=== PATIENT | male | born 1985 | race Two or more races ===

== ENCOUNTER 2018-08-03 17:43 | Emergency (ER) | payer MEDICAID, SELFPAY ==
[~2018-08-03] VITALS: Ht 162.6 cm; Wt 80.7 kg
[~2018-08-03 17:43] MED LIST: NKM; NORCO 5-325 TA1 EACH PO
[2018-08-03] MEDS ORDERED: NKM (17:52)
--- NOTE | 2018-08-03 17:55 | NUR ---
ED Nurse Note: Patient walked into ED c/o lower quadrant abdominal pain 10/10, constricting pain. patient reports it started 3.5 hours prior to arrival patient is alert awake x4 ambulatory, breathing even and unlabored
[2018-08-03] MEDS ORDERED: Isovue-300 100ml vial INJ PRN (18:00)
[2018-08-03] MEDS ORDERED: Morphine Sulfate 4mg/ml Inj (IV USE ONLY) IVP ONE (18:00)
--- NOTE | 2018-08-03 18:04 | Emergency Room Report ---
History of Present Illness General Chief Complaint: Abdominal Pain Source: Patient Present Illness HPI Patient presents in onset of epigastric pain that radiates to the umbilicus. It started about 2:00 this afternoon. This happened after he ate a sandwich. He denies any radiation. No nausea, vomiting, dysuria, hematuria. Severe pain. Improved by curling over. Allergies: Coded Allergies: No Known Allergies (Unverified , 05/17/13) Patient History Past Medical History: other - asthma Past Surgical History: none Pertinent Family History: none Nursing Documentation-H Hx Asthma: Yes Review of Systems All Other Systems: negative except mentioned in HPI Physical Exam Vital Signs Date Time Temp Pulse Resp B/P (MAP) Pulse Ox O2 Delivery O2 Flow Rate FiO2 08/03/18 17:49 98.4 88 20 138/84 97 Room Air General Appearance: moderate distress ENT: normal ENT inspection, no angioedema, normal voice Neck: normal inspection Respiratory: normal inspection, chest non-tender, lungs clear, normal breath sounds Gastrointestinal: normal inspection, no guarding, no hernia, no pulsatile mass , tenderness Genitourinary: no CVA tenderness Neurologic: alert, oriented x3, policy and planning manager III-XII nml as tested, motor strength/tone normal Psychiatric: normal inspection Medical Decision Making ER Course Patient presented with significant complexity of risk requiring multiple bedside evaluations. I was particularly concerned about acute abdominal etiology of appendicitis, small bowel obstruction, diverticulitis, perforation, pancreatitis. The patient is alert. CT was reviewed. The patient was given antibiotic for diverticulitis. Patient on a by mouth challenge. The patient is afebrile. His pain is much controlled after IV morphine. Be discharged home with very close follow-up by his primary care physician Te progression return if any change in symptoms or any new symptoms or worsening symptoms. Laboratory Tests Test 08/03/18 18:05 White Blood Count 19.8 K/UL (4.8-10.8) H Red Blood Count 5.49 M/UL (4.70-6.10) Hemoglobin 14.3 G/DL (14.2-18.0) Hematocrit 44.1 % (42.0-52.0) Mean Corpuscular Volume 80 FL (80-99) Mean Corpuscular Hemoglobin 26.1 PG (27.0-31.0) L Mean Corpuscular Hemoglobin Concent 32.5 G/DL (32.0-36.0) Red Cell Distribution Width 13.5 % (11.6-14.8) Platelet Count 275 K/UL (150-450) Mean Platelet Volume 6.7 FL (6.5-10.1) Neutrophils (%) (Auto) % (45.0-75.0) Lymphocytes (%) (Auto) % (20.0-45.0) Monocytes (%) (Auto) % (1.0-10.0) Eosinophils (%) (Auto) % (0.0-3.0) Basophils (%) (Auto) % (0.0-2.0) Differential Total Cells Counted 100 Neutrophils % (Manual) 91 % (45-75) H Lymphocytes % (Manual) 5 % (20-45) L Monocytes % (Manual) 3 % (1-10) Eosinophils % (Manual) 1 % (0-3) Basophils % (Manual) 0 % (0-2) Band Neutrophils 0 % (0-8) Platelet Estimate Adequate Platelet Morphology Normal Red Blood Cell Morphology Normal Urine Color Pale yellow Urine Appearance Clear Urine pH 6.5 (4.5-8.0) Urine Specific [place] 1.015 (1.005-1.035) Urine Protein Negative (NEGATIVE) Urine Glucose (UA) Negative (NEGATIVE) Urine Ketones Negative (NEGATIVE) Urine Blood 1+ (NEGATIVE) H Urine Nitrite Negative (NEGATIVE) Urine Bilirubin Negative (NEGATIVE) Urine Urobilinogen Normal MG/DL (0.0-1.0) Urine Leukocyte Esterase 1+ (NEGATIVE) H Urine RBC 0-2 /HPF (0 - 0) H Urine WBC 2-4 /HPF (0 - 0) Urine Squamous Epithelial Cells None /LPF (NONE/OCC) Urine Bacteria Few /HPF (NONE) Sodium Level 141 MMOL/L (136-145) Potassium Level 4.0 MMOL/L (3.5-5.1) Chloride Level 103 MMOL/L (98-107) Carbon Dioxide Level 30 MMOL/L (21-32) Anion Gap 8 mmol/L (5-15) Blood Urea Nitrogen 17 mg/dL (7-18) Creatinine 1.2 MG/DL (0.55-1.30) Estimate Glomerular Filtration Rate > 60 mL/min (>60) Glucose Level 100 MG/DL (74-106) Calcium Level 9.2 MG/DL (8.5-10.1) Total Bilirubin 0.4 MG/DL (0.2-1.0) Aspartate Amino Transferase (AST) 14 U/L (15-37) L Alanine Aminotransferase (ALT) 28 U/L (12-78) Alkaline Phosphatase 83 U/L (46-116) Total Protein 7.8 G/DL (6.4-8.2) Albumin 4.0 G/DL (3.4-5.0) Globulin 3.8 g/dL Albumin/Globulin Ratio 1.1 (1.0-2.7) Lipase 281 U/L (73-393) Last Vital Signs Date Time Temp Pulse Resp B/P (MAP) Pulse Ox O2 Delivery O2 Flow Rate FiO2 08/03/18 17:49 98.4 88 20 138/84 97 Room Air Disposition: HOME, SELF-CARE Condition: Stable Scripts Ondansetron (Zofran) 4 Mg Tablet 4 MG ORAL Q6H PRN for Nausea & Vomiting, #10 TAB Prov: JOSE DOUGLAS 08/03/18 Ibuprofen* (MOTRIN*) 600 Mg Tablet 600 MG ORAL Q8H PRN for For Pain, #30 TAB 0 Refills Prov: JOSE DOUGLAS. 08/03/18 Hydrocodone Bit/Acetaminophen 5-325* (NORCO 5-325*) 1 Each Tablet 1 TAB ORAL Q6H PRN for For Pain, #20 TAB 0 Refills Prov: JOSE DOUGLAS. 08/03/18 Metronidazole* (FLAGYL*) 500 Mg Tablet 500 MG ORAL THREE TIMES A DAY for 10 Days, #21 TAB Prov: JOSE DOUGLAS 08/03/18 Levofloxacin* (LEVAQUIN*) 500 Mg Tablet 500 MG ORAL DAILY for 10 Days, #10 TAB 0 Refills Prov: JOSE DOUGLAS. 08/03/18 Patient Instructions: Diverticulitis, [id number] JOSE DOUGLAS Aug 03, 2018 18:04
[2018-08-03 18:18] LABS: HEMATOCRIT 44.1 % (42.0-52.0); HEMOGLOBIN 14.3 G/DL (14.2-18.0); MEAN CORPUSCULAR VOLUME 80 FL (80-99); PLATELET COUNT 275 K/UL (150-450); RED BLOOD COUNT 5.49 M/UL (4.70-6.10); RED CELL DISTRIBUTION WIDTH 13.5 % (11.6-14.8); WHITE BLOOD COUNT 19.8 K/UL (4.8-10.8)
[2018-08-03 18:20] VITALS: BP 135/82
[2018-08-03 18:25] LABS: APPEARANCE,URINE CLEAR; BILIRUBIN, URINE NEGATIVE (NEGATIVE); COLOR,URINE PALE YELLOW; GLUCOSE, URINE (UA) NEGATIVE (NEGATIVE); KETONES,URINE NEGATIVE (NEGATIVE); LEUKOCYTE ESTERASE ,URINE 1+ (NEGATIVE); NITRITE,URINE NEGATIVE (NEGATIVE); PH,URINE 6.5 (4.5-8.0); PROTEIN,URINE NEGATIVE (NEGATIVE); UROBILINOGEN,URINE NORMAL MG/DL (0.0-1.0)
--- NOTE | 2018-08-03 18:29 | NUR ---
ED Nurse Note: at bedside
[2018-08-03 18:30] LABS: ANION GAP 8 mmol/L (5-15); BLOOD UREA NITROGEN 17 mg/dL (7-18); CALCIUM 9.2 MG/DL (8.5-10.1); CARBON DIOXIDE 30 MMOL/L (21-32); CHLORIDE 103 MMOL/L (98-107); CREATININE 1.2 MG/DL (0.55-1.30); SODIUM 141 MMOL/L (136-145)
[2018-08-03 18:35] LABS: ALANINE AMINOTRANSFERASE 28 U/L (12-78); ALBUMIN/GLOBULIN RATIO 1.1 (1.0-2.7); ALKALINE PHOSPHATASE 83 U/L (46-116); ASPARTATE AMINO TRANSFERASE 14 U/L (15-37); BILIRUBIN,TOTAL 0.4 MG/DL (0.2-1.0)
--- NOTE | 2018-08-03 18:42 | NUR ---
ED Nurse Note: patient went to CT
[2018-08-03] MEDS ORDERED: HYDROmorphone 1mg/ml Carpuject IVP ONE (20:00)
[2018-08-03] MEDS ORDERED: Levofloxacin 500mg tab ORAL ONE (21:00)
--- NOTE | 2018-08-03 21:00 | NUR ---
ED Nurse Note: PO charo well, no N/V or pain. Inform ERMD.
[2018-08-03 21:40] VITALS: BP 125/77
[2018-08-03] MEDS ORDERED: IBUPROFEN600 MG ORAL (21:43)
[2018-08-03] MEDS ORDERED: LEVAQUIN500 MG ORAL (21:43)
[2018-08-03] MEDS ORDERED: ZOFRAN4 M1 ORAL (21:43)
[2018-08-03] MEDS ORDERED: METRONIDAZOLE500 MG ORAL (21:43)
[2018-08-03] MEDS ORDERED: NORCO 5-325 TA1 EACH ORAL (21:43)
--- NOTE | 2018-08-03 22:00 | NUR ---
ER DISCHARGE NOTE: Patient is cleared to be discharged per ERMD, pt is aox4, on room air, with stable vital signs. pt was given dc and prescription instructions, pt was able to verbalize understanding, pt id band and iv site removed without complications. pt is able to ambulate with steady gait with girlfriend. pt took all belongings.
[2018-08-03 22:07] VITALS: BP 125/77
--- NOTE | 2018-08-04 10:29 | Diagnostic Imaging Report ---
Clinical Indication: Abdominal pain, epigastric pain radiating to the umbilicus Technique: No oral contrast utilized, per emergency room physician request IV administration nonionic contrast. Venous phase spiral acquisition obtained through the abdomen and pelvis. Multiplanar reconstructions were generated. Total dose length product 878.84 mGycm. CTDIvol(s) 17.05 mGy. Dose reduction achieved using automated exposure control Comparison: none Findings: There is a diverticulum of the mid sigmoid colon. There is inflammation of the surrounding mesenteric fat as well as thickening of the sigmoid wall in the region. No extraluminal gas or fluid. The appendix is normal. There is small bowel feces within the distal ileum indicating stasis of contents. No small bowel distention. No free or loculated intraperitoneal gas or fluid is evident. Distal esophagus, stomach, duodenum are unremarkable. The liver, gallbladder, bile ducts, pancreas, spleen, adrenals are unremarkable. There is a cyst in the left kidney. There are bilateral subcentimeter low-attenuation renal lesions which are too small to characterize. No retroperitoneal or mesenteric mass or adenopathy. No pelvic mass or adenopathy. The included lung bases are clear. The bones are unremarkable. Impression: Evidence of uncomplicated acute sigmoid diverticulitis. No other significant abnormality demonstrated This agrees with the preliminary interpretation provided overnight by Dr. Melvin The CT scanner at [facility] is accredited by the [employer] and the scans are performed using protocols designed to limit radiation exposure to as low as reasonably achievable to attain images of sufficient resolution adequate for diagnostic evaluation.
== END 2018-08-03 22:11 | disposition home or self-care (01) ==
LOC: EMR 18:14
DX: R10.13 Epigastric pain (principal)
CPT/HCPCS: 36415; 74177; 80053; 81003; 83690; 85007; 85025; 96361; 96365; 96375; 99284; J1170; J2270; J2405; Q9967

== ENCOUNTER 2018-08-30 17:03 | Emergency (ER) | payer MEDICAID ==
[~2018-08-30] VITALS: Ht 160 cm; Wt 78.9 kg
[~2018-08-30 17:03] MED LIST changes: +IBUPROFEN600 MG ORAL; +LEVAQUIN500 MG ORAL; +METRONIDAZOLE500 MG ORAL; +NORCO 5-325 TA1 EACH ORAL; +ZOFRAN4 M1 ORAL
--- NOTE | 2018-08-30 17:30 | NUR ---
ED Nurse Note: Pt ambulated to ED from home, c/o 10/10 abdominal pain x1 day, pt states he has diverticulitis. Pt is A&Ox4, VSS. Denies chest pain or sob, also c/o nausea
[2018-08-30] MEDS ORDERED: Ketorolac 30mg Inj IV ONE (17:45)
[2018-08-30] MEDS ORDERED: Morphine Sulfate 4mg/ml Inj (IV USE ONLY) IVP ONE ×2 (17:45→21:30)
[2018-08-30] MEDS ORDERED: Isovue-300 100ml vial INJ PRN (17:45)
[2018-08-30 18:26] LABS: ANION GAP 10 mmol/L (5-15); BLOOD UREA NITROGEN 9 mg/dL (7-18); CARBON DIOXIDE 27 MMOL/L (21-32); CHLORIDE 102 MMOL/L (98-107); CREATININE 0.9 MG/DL (0.55-1.30); POTASSIUM 3.7 MMOL/L (3.5-5.1); SODIUM 139 MMOL/L (136-145)
--- NOTE | 2018-08-30 18:27 | NUR ---
ED Nurse Note: received patient from Shannen VARGAS.
[2018-08-30 18:29] VITALS: BP 128/90
[2018-08-30 18:30] LABS: ALANINE AMINOTRANSFERASE 25 U/L (12-78); ALBUMIN 3.8 G/DL (3.4-5.0); ALKALINE PHOSPHATASE 66 U/L (46-116); ASPARTATE AMINO TRANSFERASE 13 U/L (15-37); BILIRUBIN,TOTAL 0.8 MG/DL (0.2-1.0)
--- NOTE | 2018-08-30 18:35 | NUR ---
ED Nurse Note: patient sent to CT
--- NOTE | 2018-08-30 18:45 | NUR ---
ED Nurse Note: patient came back from CT
[2018-08-30 18:47] LABS: APPEARANCE,URINE CLEAR; BILIRUBIN, URINE NEGATIVE (NEGATIVE); COLOR,URINE PALE YELLOW; GLUCOSE, URINE (UA) NEGATIVE (NEGATIVE); KETONES,URINE 2+ (NEGATIVE); LEUKOCYTE ESTERASE ,URINE NEGATIVE (NEGATIVE); NITRITE,URINE NEGATIVE (NEGATIVE); PH,URINE 6 (4.5-8.0); PROTEIN,URINE NEGATIVE (NEGATIVE); UROBILINOGEN,URINE NORMAL MG/DL (0.0-1.0)
[2018-08-30 18:50] LABS: BASOPHILS % (AUTO) 0.3 % (0.0-2.0); EOSINOPHILS % (AUTO) 0.5 % (0.0-3.0); HEMATOCRIT 41.6 % (42.0-52.0); HEMOGLOBIN 13.8 G/DL (14.2-18.0); LYMPHOCYTES % (AUTO) 10.8 % (20.0-45.0); MEAN CORPUSCULAR VOLUME 78 FL (80-99); MONOCYTES % (AUTO) 6.1 % (1.0-10.0); NEUTROPHILS % (AUTO) 82.4 % (45.0-75.0); PLATELET COUNT 247 K/UL (150-450); RED CELL DISTRIBUTION WIDTH 12.6 % (11.6-14.8); WHITE BLOOD COUNT 17.1 K/UL (4.8-10.8)
--- NOTE | 2018-08-30 19:10 | NUR ---
HAND-OFF: Report given to Katerin Lala RN.
[2018-08-30 20:25] VITALS: BP 132/78
--- NOTE | 2018-08-30 21:00 | NUR ---
ER Nurse Note: Pt a&ox4, VSS, no signs of acute distress. Pt tolerating all medication well. LT AC IV; patent. All safety measures met; will continue to monitor.
[2018-08-30 22:35] VITALS: BP 126/78
--- NOTE | 2018-08-30 22:35 | NUR ---
ER Nurse Note: Report given to SAM Shankar for continuity of care. Pt a&ox4, VSS, no signs of distress. All belongings taken; all orders completed.
--- NOTE | 2018-08-30 23:15 | Emergency Room Report ---
History of Present Illness General Chief Complaint: Abdominal Pain Source: Patient Present Illness HPI 33-year-old male presents ED for evaluation. Patient complaining of abdominal pain which started today. Pain is sharp, 9 out of 10, localized lower abdomen. Denies fevers or chills. Denies nausea or vomiting. Denies diarrhea. States he's had prior history of diverticulitis. No other aggravating relieving factors. Denies any other associated symptoms Allergies: Coded Allergies: No Known Allergies (Unverified , 05/17/13) Patient History Past Medical History: asthma, other - Diverticulitis Past Surgical History: none Pertinent Family History: none Social History: Denies: smoking, alcohol use, drug use Immunizations: UTD Reviewed Nursing Documentation: PMH: Agreed; PSxH: Agreed Nursing Documentation-PMH Hx Asthma: Yes Review of Systems All Other Systems: negative except mentioned in HPI Physical Exam Vital Signs Date Time Temp Pulse Resp B/P (MAP) Pulse Ox O2 Delivery O2 Flow Rate FiO2 08/30/18 17:12 98.4 83 16 96 Room Air 08/30/18 18:29 128/90 Sp02 EP Interpretation: reviewed, normal General Appearance: no apparent distress, alert, GCS 15, non-toxic Head: normocephalic, atraumatic Eyes: bilateral eye normal inspection, bilateral eye PERRL ENT: hearing grossly normal, normal pharynx, no angioedema, normal voice Neck: full range of motion, supple/symm/no masses Respiratory: chest non-tender, lungs clear, normal breath sounds, speaking full sentences Cardiovascular #1: regular rate, rhythm, no edema Cardiovascular #2: 2+ carotid (R), 2+ carotid (L), 2+ radial (R), 2+ radial (L) , 2+ dorsalis pedis (R), 2+ dorsalis pedis (L) Gastrointestinal: normal bowel sounds, soft, non-distended, no rebound, tenderness Rectal: deferred Genitourinary: normal inspection, no CVA tenderness Musculoskeletal: back normal, gait/station normal, normal range of motion, non- tender Neurologic: alert, oriented x3, responsive, motor strength/tone normal, sensory intact, speech normal Psychiatric: judgement/insight normal, memory normal, mood/affect normal, no suicidal/homicidal ideation Reflexes: 3+ bicep (R), 3+ bicep (L), 3+ tricep (R), 3+ tricep (L), 3+ knee (R) , 3+ knee (L) Skin: normal color, no rash, warm/dry, well hydrated Lymphatic: no adenopathy Medical Decision Making Diagnostic Impression: Primary Impression: Diverticulitis ER Course Hospital Course 33-year-old male presents to ED with lower abdominal pain Differential diagnoses include: appendicitis, diverticulitis, SBO, gastroenteritis Clinical course Patient placed on stretcher. panel monitor. After initial history and physical I ordered labs, IV fluids, UA, pain medication and CT scan Labs - noted leukocytosis, Hb/Hct stable. electrolytes ok. CT abdomen and pelvis - diverticulitis with extraluminal/intraluminal air ? perforation. no abscess Discussed findings with patient. IV antibiotics ordered. Patient will require admission. Because of insurance patient will be transferred I feel this is a highly complex case requiring extensive working including EKG/ Rhythm strip, Xray/CT/US, Blood/urine lab work, repeat exams while in ED, and administration of strong opiates/narcotics for pain control, admission to hospital or close patient follow up. Diagnosis - divertculitis Transferred in serious condition Labs Test 08/30/18 18:00 08/30/18 18:24 White Blood Count 17.1 K/UL (4.8-10.8) Red Blood Count 5.30 M/UL (4.70-6.10) Hemoglobin 13.8 G/DL (14.2-18.0) Hematocrit 41.6 % (42.0-52.0) Mean Corpuscular Volume 78 FL (80-99) Mean Corpuscular Hemoglobin 26.1 PG (27.0-31.0) Mean Corpuscular Hemoglobin Concent 33.3 G/DL (32.0-36.0) Red Cell Distribution Width 12.6 % (11.6-14.8) Platelet Count 247 K/UL (150-450) Mean Platelet Volume 7.0 FL (6.5-10.1) Neutrophils (%) (Auto) 82.4 % (45.0-75.0) Lymphocytes (%) (Auto) 10.8 % (20.0-45.0) Monocytes (%) (Auto) 6.1 % (1.0-10.0) Eosinophils (%) (Auto) 0.5 % (0.0-3.0) Basophils (%) (Auto) 0.3 % (0.0-2.0) Sodium Level 139 MMOL/L (136-145) Potassium Level 3.7 MMOL/L (3.5-5.1) Chloride Level 102 MMOL/L (98-107) Carbon Dioxide Level 27 MMOL/L (21-32) Anion Gap 10 mmol/L (5-15) Blood Urea Nitrogen 9 mg/dL (7-18) Creatinine 0.9 MG/DL (0.55-1.30) Estimat Glomerular Filtration Rate > 60 mL/min (>60) Glucose Level 102 MG/DL (74-106) Calcium Level 9.0 MG/DL (8.5-10.1) Total Bilirubin 0.8 MG/DL (0.2-1.0) Aspartate Amino Transf (AST/SGOT) 13 U/L (15-37) Alanine Aminotransferase (ALT/SGPT) 25 U/L (12-78) Alkaline Phosphatase 66 U/L (46-116) Total Protein 7.6 G/DL (6.4-8.2) Albumin 3.8 G/DL (3.4-5.0) Globulin 3.8 g/dL Albumin/Globulin Ratio 1.0 (1.0-2.7) Lipase 63 U/L (73-393) Urine Color Pale yellow Urine Appearance Clear Urine pH 6 (4.5-8.0) Urine Specific [place] 1.015 (1.005-1.035) Urine Protein Negative (NEGATIVE) Urine Glucose (UA) Negative (NEGATIVE) Urine Ketones 2+ (NEGATIVE) Urine Blood 1+ (NEGATIVE) Urine Nitrite Negative (NEGATIVE) Urine Bilirubin Negative (NEGATIVE) Urine Urobilinogen Normal MG/DL (0.0-1.0) Urine Leukocyte Esterase Negative (NEGATIVE) Urine RBC 2-4 /HPF (0 - 0) Urine WBC 0-2 /HPF (0 - 0) Urine Squamous Epithelial Cells None /LPF (NONE/OCC) Urine Bacteria Occasional /HPF (NONE) CT/MRI/US Diagnostic Results CT/MRI/US Diagnostic Results : Imaging Test Ordered: CT A/P Impression Sigmoid diverticulitis with inflammatory changes. Indeterminant location ( intraluminal versus extraluminal) of a small focus of air in the region, measures about 3 mm. No drainable abscess. Last Vital Signs Date Time Temp Pulse Resp B/P (MAP) Pulse Ox O2 Delivery O2 Flow Rate FiO2 08/30/18 18:29 98.4 83 16 128/90 96 Room Air Status: improved Disposition: XFER SHT-TRM HOSP Condition: Serious Referrals: JACOB FIERRO,REFERRING (PCP) Jarrod Thornton MD August 30, 2018 23:15
--- NOTE | 2018-08-31 09:14 | Diagnostic Imaging Report ---
Indication: Abdominal pain Technique: Continuous helical transaxial imaging of the abdomen and pelvis was obtained from the lung bases to the pubic symphysis during intravenous contrast administration. Coronal 2-D reformats were also obtained. Study obtained in a Siemens sensation [address] Automatic Exposure Control was utilized. Total Dose length Product (DLP): 938.[address] Dose Index Volume (CTDIvol): 17.73 mGy Comparison: None Findings: The lung bases are clear. The spleen demonstrates a small cyst well-circumscribed and homogeneous measuring about 2 cm. 1 cm cyst in the left kidney noted. The gallbladder, pancreas, adrenal glands are unremarkable. Bowel gas pattern is nonobstructive. There is perisigmoid soft tissue stranding consistent with acute diverticulitis. 2 mm focus of air noted. There is likely a tiny perforated diverticulum extending superiorly from the sigmoid colon. There is no abscess identified. The appendix is normal. IMPRESSION: Inflammation in the lower anterior abdomen adjacent to the sigmoid colon consistent with acute diverticulitis. Tiny focus of extraluminal air. No abscess. Splenic cyst Left renal cyst Normal appendix [facility] has communicated the preliminary results to the Emergency Department. Their findings are largely concordant with this report. The CT scanner at [facility] is accredited by the [employer] and the scans are performed using dose optimization techniques as appropriate to a performed exam including Automatic Exposure control.
== END 2018-08-30 22:35 | disposition short-term general hospital (02) ==
LOC: EMR 18:15
DX: K57.92 Diverticulitis of intestine, part unspecified, without perforation or abscess without bleeding (principal); D72.829 Elevated white blood cell count, unspecified
CPT/HCPCS: 36415; 74177; 80053; 81003; 83690; 85025; 96361; 96365; 96368; 96375; 96376; 99285; J0744; J1885; J2270; J2405; J7040; Q9967; S0028

== ENCOUNTER 2018-12-11 13:45 | Emergency (ER) | payer SELFPAY ==
[~2018-12-11] VITALS: Ht 132.1 cm; Wt 32.2 kg
--- NOTE | 2018-12-11 14:58 | Emergency Room Report ---
History of Present Illness General Chief Complaint: Upper Extremity Injury Source: Patient, Family Member Present Illness HPI 9-year-old female presents to the emergency department complaining of localized 9 out of 10 severity pain pain and tenderness to the left wrist status post mechanical slip and fall while rollerblading accidentally 1-1/2 hours ago. Patient denies hitting her head she denies loss of consciousness she denies midline neck or back pain. She denies taking blood thinning medications. Patient denies swelling or bruising. Denies open wounds or bleeding. Flexion, extension and palpation of the wrist exacerbate her symptoms she has some relief during rest. No previous injury to this extremity no other aggravating or relieving factors. Pt. is right hand dominant. Allergies: Coded Allergies: PENICILLINS (Verified Allergy, Unknown, 12/11/18) Patient History Past Medical History: see triage record Past Surgical History: none Pertinent Family History: none Now: No Immunizations: UTD Reviewed Nursing Documentation: PMH: Agreed; PSxH: Agreed Nursing Documentation-PMH Past Medical History: No Stated History Hx Asthma: Yes Review of Systems All Other Systems: negative except mentioned in HPI Physical Exam Vital Signs Date Time Temp Pulse Resp B/P (MAP) Pulse Ox O2 Delivery O2 Flow Rate FiO2 12/11/18 13:55 98.8 109 18 102/57 96 Room Air Sp02 EP Interpretation: reviewed, normal General Appearance: no apparent distress, alert, GCS 15, non-toxic Head: normocephalic, atraumatic Eyes: bilateral eye normal inspection, bilateral eye PERRL ENT: hearing grossly normal, normal voice Neck: full range of motion Respiratory: lungs clear, normal breath sounds, speaking full sentences Cardiovascular #1: regular rate, rhythm Musculoskeletal: back normal, gait/station normal, normal range of motion, other - negative snuff box tenderness, tender - TTP to the left wrist, no swelling, no bruising. no open wounds Neurologic: alert, oriented x3, responsive, motor strength/tone normal, sensory intact, speech normal, grossly normal Psychiatric: judgement/insight normal Skin: normal color, other - no abrasions or lacerations. Lymphatic: no adenopathy Medical Decision Making PA Attestation Dr. Edwards Is my supervising Physician whom patient management has been discussed with. Diagnostic Impression: Primary Impression: Buckle fracture of radius ER Course 9-year-old female presents to the emergency department complaining of localized 9 out of 10 severity pain pain and tenderness to the left wrist status post mechanical slip and fall while rollerblading accidentally 1-1/2 hours ago. Patient denies hitting her head she denies loss of consciousness she denies midline neck or back pain. She denies taking blood thinning medications. Patient denies swelling or bruising. Denies open wounds or bleeding. Flexion, extension and palpation of the wrist exacerbate her symptoms she has some relief during rest. No previous injury to this extremity no other aggravating or relieving factors. Pt. is right hand dominant. Ddx considered but are not limited to Fracture, dislocation, contusion, Sprain/ Strain/Spasm. Vital signs: are WNL, pt. is afebrile H&PE are most consistent with musculoskeletal injury will perform imaging to r/ o fractures/dislocations. ORDERS: - X-ray Left wrist 3 - negative for fx, Dislocation, or significant soft tissue injury, per preliminary read in ED, and signed by PATRICK Serrano, my supervising physician has reviewed, and agrees with my interpretation. ED INTERVENTIONS: - Motrin PO - left thumb spika wrist splint applied by polysomnograph tech. Pt. remains neurovascularly intact. DISCHARGE: At this time pt. is stable for d/c to home. Will provide printed patient care instructions, and any necessary prescriptions. Care plan and follow up instructions have been discussed with the patient prior to discharge. Other X-Ray Diagnostic Results Other X-Ray Diagnostic Results : # of Views/Limited Vs Complete: 1 View Indication: Pain EP Interpretation: Yes PATRICK Xray: Interpretation reviewed, by supervising MD, and agrees with findings. Interpretation: no dislocation, no soft tissue swelling, other - distal radius buckle fx Impression: Other - abnormal Electronically Signed by: Mary Serrano PA-C Last Vital Signs Date Time Temp Pulse Resp B/P (MAP) Pulse Ox O2 Delivery O2 Flow Rate FiO2 12/11/18 13:55 98.8 109 18 102/57 96 Room Air Status: improved Disposition: HOME, SELF-CARE Condition: Stable Scripts Ibuprofen* (MOTRIN*) 400 Mg Tablet 400 MG ORAL THREE TIMES A DAY, #30 TAB 0 Refills Prov: Mary Serrano 12/11/18 Referrals: [facility] Patient Instructions: Wrist Fracture, [id number] Additional Instructions: Take medications as directed. Follow up with an [facility] in 3-5 days, even if your symptoms have resolved. Return sooner to ED if new symptoms occur, or current symptoms become worse. Do not drink alcohol, drive, or operate heavy machinery while taking [place] as this may cause drowsiness. - Please note that this Emergency Department Report was dictated using [employer] instructor technology software, occasionally this can lead to erroneous entry secondary to interpretation by the dictation equipment. Mary Serrano Dec 11, 2018 14:58
--- NOTE | 2018-12-11 15:26 | Diagnostic Imaging Report ---
EXAM: XR Left Wrist, 2 Views CLINICAL HISTORY: PAIN TECHNIQUE: Frontal and lateral views of the left wrist. COMPARISON: None FINDINGS: Bones/joints: Buckle fracture involving the distal left radial metaphysis. No dislocation. Soft tissues: Normal. IMPRESSION: Buckle fracture involving the distal left radial metaphysis.
[2018-12-11] MEDS ORDERED: IBUPROFEN400 MG ORAL (15:49)
[2018-12-11 16:13] VITALS: BP 109/78
--- NOTE | 2018-12-11 16:13 | NUR ---
ER DISCHARGE NOTE: Pt was seen due to left wrist injury. Patient is cleared to be discharged per PA, pt is aox4, on room air, with stable vital signs. pt/dad were given dc and prescription instructions, pt/dad were able to verbalize understanding, pt id band removed. pt is able to ambulate with steady gait. pt/dad took all belongings.
== END 2018-12-11 16:13 | disposition home or self-care (01) ==
LOC: EDSEX 13:45 → EDBD 13:45 → EMR 14:29
DX: S52.502A Unspecified fracture of the lower end of left radius, initial encounter for closed fracture (principal); W18.39XA Other fall on same level, initial encounter; Y93.51 Activity, roller skating (inline) and skateboarding; Y92.9 Unspecified place or not applicable
CPT/HCPCS: 29130; 99283